=== PATIENT | female | born 1935 | race Caucasian/White ===

== ENCOUNTER 2019-03-29 20:02 | Inpatient (IN) ==
[2019-03-29 21:03] LABS: BASO# 0.03 X1000 (0.0-0.2); BASO% 0.5 % (0.0-0.8); EOS# 0.13 X1000 (0.0-0.7); EOS% 2.3 % (0.0-10.0); HEMATOCRIT 34.7 % (37.0-47.0); HEMOGLOBIN 12.1 g/dL (12.0-16.0); IMM GRAN# 0.04 X1000 (0.0-0.04); IMM GRAN% 0.7 % (0.0-0.5); LYMPH# 2.22 X1000 (1.2-3.4); LYMPH% 38.6 % (20.5-51.1); MCH 29.9 PG (27-31); MCHC 34.9 g/dL (33-37); MCV 85.7 FL (81-99); MONO# 1.04 X1000 (0.11-0.59); MONO% 18.1 % (1.7-9.3); MPV 10.2 FL (7.4-10.4); NEUT# 2.29 X1000 (1.4-6.5); NEUT% 39.8 % (42.2-75.2); PLT 187 X1000 (130-400); RBC 4.05 XMIL (4.2-5.4); RDW 12.5 % (11.5-14.5); WBC 5.75 X1000 (4.8-10.8)
--- NOTE | 2019-03-29 21:16 | Diag Imaging Result Doc PS360 ---
EXAM: CHEST-2 VIEWS INDICATION: chest pain TECHNIQUE: 2 views COMPARISON: 12/02/2017 FINDINGS: There is evidence of prior granulomatous disease, stable. The lungs are grossly clear. There is no discrete pleural fluid collection or pneumothorax. The cardiomediastinal silhouette and central vasculature are grossly unremarkable. IMPRESSION: No evidence of acute pathology by plain radiograph. Electronically signed by Isidro Stiles 03/29/2019 9:14 PM
[2019-03-29 21:18] LABS: ALB/GLOB RATIO 1.8; ALBUMIN 4.8 g/dL (3.5-5.0); CALCIUM 10.5 mg/dL (8.8-10.2); CREATININE 1.9 mg/dL (0.5-0.9); POTASSIUM 4.1 mmol/L (3.5-5.1); TOTAL BILIRUBIN 0.64 mg/dL (0.20-1.00); TOTAL PROTEIN 7.5 g/dL (6.3-8.3)
[2019-03-29 21:23] LABS: URINE SOURCE CLEAN CATCH
[2019-03-29 21:28] LABS: BILIRUBIN URINE NEGATIVE (NEGATIVE); BLOOD URINE NEGATIVE (NEGATIVE); COLOR YELLOW; GLUCOSE URINE NEGATIVE (NEGATIVE); KETONE URINE NEGATIVE (NEGATIVE); LEUKOCYTES URINE MODERATE (NEGATIVE); NITRITE URINE NEGATIVE (NEGATIVE); PROTEIN URINE TRACE mg/dL (NEGATIVE); SP GRAVITY URINE 1.012; TURBIDITY URINE CLEAR (CLEAR); UROBILINOGEN URINE NORMAL (NORMAL)
[2019-03-29 21:29] LABS: UR EPITHELIAL CELLS <10 /HPF (<10); URINE BACTERIA NEGATIVE /HPF; URINE RBC <10 /HPF (<10); URINE WBC <10 /HPF (<10)
--- NOTE | 2019-03-29 21:45 | Diag Imaging Result Doc PS360 ---
EXAM: CT ABDOMEN/PELVIS W/O CONTRAST INDICATION: abd pain, acute kidney injury TECHNIQUE: This exam was performed using automated exposure control, adjustment of mA or kV according to patient size, and/or use of iterative reconstruction technique. COMPARISON: 03/13/2013 FINDINGS: There is mosaic attenuation at the lung bases indicating mild air trapping. The gallbladder, liver, spleen, pancreas, and adrenal glands are unremarkable. During the interval since the previous study and 2012, the left kidney has become significantly atrophic. There is a simple density cyst at the lower pole of the left kidney that is also seen on the previous study. There are no perirenal fluid collections. There are no renal stones and no hydronephrosis. The right kidney is unremarkable. The urinary bladder appears normal. There has been a prior hysterectomy. There has been a prior appendectomy. There is no evidence of bowel wall thickening or bowel obstruction. The remainder of the GI tract is essentially unremarkable. There is lower thoracic and lumbar spondylosis. IMPRESSION: 1.Left renal atrophy that has occurred during the interval since 2012. 2.Other incidental/nonacute findings detailed above. No definite acute pathology by unenhanced CT. Electronically signed by Isidro Stiles 03/29/2019 9:43 PM
[2019-03-29] MEDS ORDERED: NS 500 ML IV ONE (21:50)
[2019-03-29] MEDS ORDERED: ZOFRAN IV ONE (22:01)
[2019-03-29] MEDS ORDERED: MORPHINE IV ONE (22:01)
[2019-03-29] MEDS ORDERED: ZOFRAN IV PRN (23:24)
[2019-03-29] MEDS ORDERED: MORPHINE IV PRN (23:24)
--- NOTE | 2019-03-29 23:57 | HISTORY AND PHYSICAL ---
PRIMARY CARE PHYSICIAN: Dr. Hall. CHIEF COMPLAINT: Abdominal pain and nausea, vomiting x1 week. HISTORY OF PRESENTING ILLNESS: An 83-year-old female with a history of hypertension, hypothyroidism, chronic kidney disease, CHF, and rheumatoid arthritis who presented to the emergency department with 1-week history of having nausea, vomiting. The patient states over the past day or so she was having worsening abdominal pain, mostly in her epigastric/right upper quadrant region. She was evaluated in the emergency department. She was noted to have elevated lipase, and clinically her symptoms were consistent with pancreatitis. Subsequently, she will require admission for further management. At the time of my examination, patient denied any headache, fever, chills, hemoptysis, melena, weight changes, but complained of abdominal pain and nausea, vomiting. PAST MEDICAL HISTORY: Includes hypertension, hypothyroidism hyperlipidemia, chronic kidney disease stage 3, CHF, rheumatoid arthritis. PAST SURGICAL HISTORY: Appendectomy, hysterectomy, cataract surgery. ALLERGIES: Penicillin and adhesives. CURRENT MEDICATIONS: Include Norvasc 5 mg p.o. daily, benazepril 40 mg p.o. daily, Plavix 75 mg p.o. daily, famotidine 40 mg p.o. b.i.d., folic acid 800 mcg p.o. daily, hydrochlorothiazide 12.5 mg p.o. daily, [place] 5 one p.o. q.8 hours, levothyroxine 50 mcg p.o. daily, metoprolol 25 mg p.o. b.i.d., Singular 10 mg p.o. at bedtime, prednisone 10 mg p.o. daily, rosuvastatin 40 mg p.o. at bedtime. SOCIAL HISTORY: She is a former smoker. No history of alcohol or illicit drug use. FAMILY HISTORY: Positive for coronary artery disease in Mother. REVIEW OF SYSTEMS: Fourteen-point review of system as listed in HPI. Other systems negative. PHYSICAL EXAMINATION: GENERAL: Cooperative, friendly female, she is resting more comfortably now. VITAL SIGNS: Temperature 97.9, pulse 60, respirations 16, blood pressure 148/72. HEENT: Atraumatic, normocephalic. Extraocular movements intact. PERRLA. NECK: No masses. CHEST: Clear to auscultation. CARDIOVASCULAR: Regular rate and rhythm. ABDOMEN: Soft. Diffuse tenderness. EXTREMITIES: No edema. NEUROLOGIC: She is awake, alert, oriented x3. GENITOURINARY: No bladder disease. SKIN: Warm. LABORATORIES AND STUDIES: WBC 5.75, hemoglobin 12.1, hematocrit 34.7, platelets 187,000. Sodium 134, potassium 4.1, chloride 98, CO2 is 22, BUN is 30, creatinine is 1.9. Glucose 107. Lipase 282. Chest x-ray, no evidence of any acute pathology. ASSESSMENT: An 83-year-old elderly female with a history of hypertension, hypothyroidism, hyperlipidemia chronic kidney disease, who presented to the emergency department with 1-week history of having nausea, vomiting, and abdominal pain. She was evaluated in the emergency department, it was suspected she had pancreatitis, subsequently, she will require admission for further management. 1. Abdominal pain. 2. Mild pancreatitis. 3. Hypertension. 4. Chronic kidney disease stage 3. 5. Rheumatoid arthritis. PLAN: 1. We will admit patient to medical floor with telemetry. 2. Continue with supportive treatment, keep patient NPO. Give her antiemetics and pain control. 3. Continue with IV fluid hydration. 4. We will monitor blood pressure closely. 5. We will monitor renal function. 6. Put patient on DVT prophylaxis with sequential compression devises. 7. We will continue to follow and reassess, make further recommendations based on the patient's clinical course. cc: MD Chilo White Jr, MD
[2019-03-30 06:46] LABS: BASO# 0.02 X1000 (0.0-0.2); BASO% 0.4 % (0.0-0.8); EOS# 0.11 X1000 (0.0-0.7); EOS% 2.2 % (0.0-10.0); HEMOGLOBIN 10.3 g/dL (12.0-16.0); LYMPH# 1.73 X1000 (1.2-3.4); LYMPH% 34.3 % (20.5-51.1); MCH 29.1 PG (27-31); MCHC 33.2 g/dL (33-37); MCV 87.6 FL (81-99); MONO# 0.68 X1000 (0.11-0.59); MONO% 13.5 % (1.7-9.3); MPV 10.3 FL (7.4-10.4); NEUT% 49.6 % (42.2-75.2); PLT 150 X1000 (130-400); RBC 3.54 XMIL (4.2-5.4); RDW 12.7 % (11.5-14.5); WBC 5.04 X1000 (4.8-10.8)
[2019-03-30 06:54] LABS: CALCIUM 9.2 mg/dL (8.8-10.2); CREATININE 1.4 mg/dL (0.5-0.9); POTASSIUM 3.8 mmol/L (3.5-5.1)
[2019-03-30] MEDS: NS 1,000 ML IV SCH ×3 (09:25→20:51)
[2019-03-30] MEDS ORDERED: SODIUM CHLORIDE 0.9% INJ SCH (12:00)
--- NOTE | 2019-03-30 12:50 | PROGRESS NOTE ---
DATE: 03/30/2019 SUBJECTIVE: An 83-year-old white female patient of Dr. Hall came in last night with right upper quadrant pain with meals since Monday. The patient was seen by Dr. Hall a month ago. Currently is pain-free. Events noted since yesterday. Son was at bedside. REVIEW OF SYSTEMS: Currently pain-free. PAST MEDICAL HISTORY: Reviewed. PAST SURGICAL HISTORY: Reviewed. MEDICINES: Reviewed. ALLERGIES: Penicillin, adhesive tape. OBJECTIVE: Vital Signs: On exam, temperature is 97 degrees, pulse is 53, blood pressure is 120/46, weighs 151 pounds. HEENT: Exam within normal limits. Neck: Supple. Chest: Clear. Heart: Sounds are regular. Abdomen: Belly is soft. No Peraza's sign. No signs of peritonitis. Extremities: No peripheral edema. Osteoarthritic changes noted in the joint. INVESTIGATIONS: CBC: White cell count 5, hematocrit 31, platelet count 150. Sodium 140, potassium 3.8, BUN 24, creatinine 1.4. Amylase, AST, ALT, proBNP, cardiac enzymes were negative. Lipase is high. Urinalysis positive for moderate leukocytes. Chest x-ray stable. CT scan of the abdomen and pelvis with left renal atrophy and status post appendectomy and hysterectomy. No gallstones. ASSESSMENT AND PLAN: 1. An 83-year-old white female admitted to the hospital with right upper quadrant pain, suspicious for gallbladder disease. Elevated lipase and patient is on nothing by mouth. Continue to follow up on ultrasound of the abdomen. If it is negative, rule out gallbladder function with HIDA scan. 2. Intravenous fluids. 3. Intravenous Zofran. 4. Chronic kidney disease. Stable. Continue intravenous fluids. 5. Deep vein thrombosis and gastrointestinal prophylaxis with Protonix and Lovenox and slowly reconcile home medications. Discussed the plan of care with family at bedside. LEVEL OF DOCUMENTATION: 35 minutes. cc: MD Chilo Del Rio Jr, MD
--- NOTE | 2019-03-30 12:52 | Diag Imaging Result Doc PS360 ---
EXAM: US ABDOMEN-COMPLETE INDICATION: abdominal pain COMPARISON: Renal ultrasound dated 10/19/2015 FINDINGS: The gallbladder appears normal with no stones, wall thickening, or pericholecystic fluid. The common bile duct is normal in diameter. Sonographic Peraza's sign was reported to be negative. The liver is grossly unremarkable. Portal venous flow is hepatopetal. The pancreas is largely obscured. The visualized portion is unremarkable. The aorta and IVC are partially obscured. The visualized portions are unremarkable. There are calcified granulomata in the spleen. The spleen is unremarkable, otherwise. There is a 2.8 cm simple appearing cyst at the lower pole of the left kidney. The kidneys are unremarkable, otherwise. IMPRESSION: Essentially unremarkable abdominal ultrasound. Electronically signed by Isidro Stiles 03/30/2019 12:50 PM
[2019-03-30] MEDS: NEXIUM IV SCH (13:39)
--- NOTE | 2019-03-30 14:12 | GENERAL SURGERY CONSULTATION ---
DATE: 03/30/2019 REQUESTING PHYSICIAN: Dr. Miranda. REASON FOR CONSULTATION: Biliary pancreatitis. HISTORY OF PRESENT ILLNESS: An 83-year-old female with history of hypertension, hypothyroidism, chronic kidney disease, congestive heart failure, rheumatoid arthritis, who presented to the emergency department with a 1-week history of nausea and vomiting. She also reports some right upper quadrant epigastric pain. She was evaluated in the emergency department and found to have pancreatitis and she has been admitted for further resuscitation. She is otherwise doing okay, feeling a little bit better this morning. PAST MEDICAL HISTORY: Includes hypertension, hypothyroidism, hyperlipidemia, chronic kidney disease stage 3, congestive heart failure, rheumatoid arthritis. PAST SURGICAL HISTORY: Includes appendectomy, hysterectomy, cataract surgery. ALLERGIES: Penicillin and adhesive. CURRENT HOME MEDICATIONS: Of note, she is on Plavix. SOCIAL HISTORY: Former smoker. Does not report alcohol or illicit drugs. FAMILY HISTORY: Positive for coronary artery disease. REVIEW OF SYSTEMS: Fourteen systems reviewed, negative except for those specified in the HPI. PHYSICAL EXAMINATION: Vital signs: The patient is currently afebrile. Her vital signs are stable. General: No acute distress. Alert, interactive, female. Looks stated age. HEENT: Normocephalic, atraumatic. Pupils equal, round, reactive to light. Mucous membranes moist. Oropharynx benign. Neck: Supple. Trachea midline. No scleral icterus. Cardiovascular: Regular rate and rhythm. Lungs: Grossly clear. Abdomen: Some tenderness to the right upper quadrant. No peritoneal signs. Extremities: Moves all extremities. Neurologic: Grossly intact. Skin: No signs of jaundice. Vascular: All extremities perfused. LABORATORY DATA: Reviewed. IMAGING: Reviewed. Ultrasound is pending. CT scan reviewed. ASSESSMENT AND PLAN: An 83-year-old female with pancreatitis. Pancreatitis. At this time, it could be biliary in origin. Discussed with her the natural course of pancreatitis. Discussed with her the possibility of needing a cholecystectomy. Discussed with her overall expectations. We will continue to follow with her as she is in the hospital. I appreciate the consult. cc: MD Chilo Bradshaw Jr, MD
[2019-03-31 06:12] LABS: BASO# 0.02 X1000 (0.0-0.2); BASO% 0.4 % (0.0-0.8); EOS# 0.11 X1000 (0.0-0.7); EOS% 2.1 % (0.0-10.0); HEMATOCRIT 33.1 % (37.0-47.0); HEMOGLOBIN 10.7 g/dL (12.0-16.0); MCH 29.2 PG (27-31); MCHC 32.3 g/dL (33-37); MCV 90.2 FL (81-99); MONO# 0.56 X1000 (0.11-0.59); MONO% 10.4 % (1.7-9.3); MPV 10.2 FL (7.4-10.4); NEUT# 3.17 X1000 (1.4-6.5); NEUT% 59.1 % (42.2-75.2); PLT 156 X1000 (130-400); RBC 3.67 XMIL (4.2-5.4); RDW 13.1 % (11.5-14.5); WBC 5.36 X1000 (4.8-10.8)
--- NOTE | 2019-03-31 07:04 | GENERAL SURGERY PROGRESS NOTE ---
DATE: 03/31/2019 SUBJECTIVE: The patient seems to be doing okay. She had a little bit of pain through the course of the night, but otherwise says she is feeling better. OBJECTIVE: Vital Signs: The patient is currently afebrile. Her vital signs are stable. HEENT: Normocephalic, atraumatic. Pupils equal, round, reactive to light. Mucous membranes moist. Oropharynx benign. Neck: Supple. Trachea midline. Cardiovascular: Regular rate and rhythm. Lungs: Grossly clear. Abdomen: Soft. Some discomfort in the epigastrium and right upper quadrant, but no peritoneal signs. Extremities: Moves all extremities. Neurologic: Grossly intact. Skin: No signs of jaundice. Vascular: All extremities are perfused. LABORATORY DATA: None this morning as of yet. ASSESSMENT AND PLAN: An 83-year-old female with likely biliary pancreatitis. Pancreatitis. At this time, she seems to be making improvement, although she is not quite fully recovered. We could potentially be looking at a cholecystectomy here in the next day or two, but would like to see some slight improvement before we consider surgical intervention, again maybe tomorrow. cc: MD Chilo Bradshaw Jr, MD
[2019-03-31 07:14] LABS: ALB/GLOB RATIO 1.5; ALBUMIN 3.5 g/dL (3.5-5.0); CREATININE 1.3 mg/dL (0.5-0.9); POTASSIUM 3.6 mmol/L (3.5-5.1); TOTAL BILIRUBIN 0.66 mg/dL (0.20-1.00); TOTAL PROTEIN 5.9 g/dL (6.3-8.3)
--- NOTE | 2019-03-31 12:01 | PROGRESS NOTE ---
DATE: 03/31/2019 SUBJECTIVE: The patient complains of right upper quadrant pain. Sometimes acid reflux symptoms, difficulty in swallowing. Not taking any NSAIDs, only Tylenol for arthritic pain. Ultrasound is negative. Appreciate Dr. Pelletier's consult. OBJECTIVE: Vital signs: Temperature is 97.8 degrees, pulse is 72, blood pressure is 110/88, weight 163 pounds. HEENT: Within normal limits. Neck: Supple. Chest: Clear. Heart: Sounds are regular. Abdomen: Belly is soft, slightly tender in the right upper quadrant area. No signs of peritonitis. DIAGNOSTIC DATA: Investigation today with CBC showing white cell count 5.3, hematocrit 33, platelets 156,000. Sodium 135, potassium 3.6, chloride 106, BUN is 17, creatinine 1.3, glucose 65. LFTs and amylase came back normal. ASSESSMENT AND PLAN: 1. Right upper quadrant pain with eating. Etiology to be determined. Ultrasound is negative. CT of the abdomen and pelvis is negative. Check the HIDA scan. 2. Chronic kidney disease is improving with IV fluids. 3. Elevated lipase but normal amylase. 4. We will hold the home medications except restart on vitamin D, folic acid, Synthroid, and continue on IV fluids, IV Nexium, and based on the HIDA scan, further recommendations will be followed. Also consider EGD since she has some symptoms of acid reflux disease as well as dysphagic symptoms. I spoke to Dr. Pelletier as well as the family and will hold the home medications for the time being. LEVEL OF DOCUMENTATION: 25 minutes. cc: MD Chilo Del Rio Jr, MD
[2019-03-31] MEDS: NEXIUM IV SCH (14:25)
--- NOTE | 2019-03-31 14:37 | Diag Imaging Result Doc PS360 ---
EXAM: HIDA SCAN W/ EJECTION FRACTION INDICATION: abdominal bloating TECHNIQUE: 5.1 mCi of technetium 99 Choletec was administered intravenously and images were obtained in usual fashion post administration. COMPARISON: None. FINDINGS: There is normal immediate hepatocellular uptake after administration of the radiotracer. Activity is seen in the gallbladder beginning at about 60 minutes post administration. No small bowel activity is identified after 45 minutes. 8 ounces of liquid fatty meal was then administered orally. Prompt small bowel activity is identified after administration. The calculated gallbladder ejection fraction is 21%. IMPRESSION: Somewhat depressed gallbladder ejection fraction suggesting possible hypokinesis. Electronically signed by Isidro Stiles 03/31/2019 2:35 PM
[2019-03-31] MEDS: NS 1,000 ML IV SCH (23:36)
[2019-04-01] MEDS: SYNTHROID PO SCH (06:17)
[2019-04-01 06:43] LABS: BASO# 0.02 X1000 (0.0-0.2); BASO% 0.4 % (0.0-0.8); EOS# 0.12 X1000 (0.0-0.7); EOS% 2.4 % (0.0-10.0); HEMATOCRIT 36.1 % (37.0-47.0); HEMOGLOBIN 11.9 g/dL (12.0-16.0); LYMPH# 1.69 X1000 (1.2-3.4); LYMPH% 34.4 % (20.5-51.1); MCH 29.4 PG (27-31); MCV 89.1 FL (81-99); MONO# 0.49 X1000 (0.11-0.59); MPV 10.2 FL (7.4-10.4); NEUT# 2.59 X1000 (1.4-6.5); NEUT% 52.8 % (42.2-75.2); PLT 197 X1000 (130-400); RBC 4.05 XMIL (4.2-5.4); RDW 13.2 % (11.5-14.5); WBC 4.91 X1000 (4.8-10.8)
--- NOTE | 2019-04-01 07:03 | GENERAL SURGERY PROGRESS NOTE ---
DATE: 04/01/2019 SUBJECTIVE: Patient feeling better. OBJECTIVE: Vital Signs: The patient is currently afebrile. Her vital signs are stable. General: No acute distress. HEENT: Normocephalic, atraumatic. Pupils equal, round, reactive to light. Mucous membranes moist. Oropharynx benign. Neck: Supple. Trachea midline. Cardiovascular: Regular rate and rhythm. Lungs: Grossly clear. Abdomen: Soft, nontender. Extremities: Moves all extremities. Neurologic: Grossly intact. Skin: No signs of jaundice. Vascular: All extremities perfused. LABORATORY DATA: None this morning as of yet. ASSESSMENT AND PLAN: An 83-year-old female with biliary pancreatitis. Biliary pancreatitis. At this time, will plan on surgical intervention today. Discussed with her, the risks, benefits, and alternatives. Risks, including but not limited to, bleeding, infection, risk of anesthesia, risk of common bile duct injury and bile leak, risk of injuring in other organs discussed. She voiced understanding and wishes to proceed. Will schedule her for today. If she is still having symptomatology, especially dysphagia, may consider in the postoperative period doing an esophagogastroduodenoscopy. cc: MD Chilo Bradshaw Jr, MD
[2019-04-01 07:11] LABS: ALB/GLOB RATIO 1.4; ALBUMIN 4.1 g/dL (3.5-5.0); CALCIUM 9.4 mg/dL (8.8-10.2); CREATININE 1.2 mg/dL (0.5-0.9); POTASSIUM 3.5 mmol/L (3.5-5.1); TOTAL BILIRUBIN 0.73 mg/dL (0.20-1.00)
--- NOTE | 2019-04-01 07:27 | PROGRESS NOTE ---
DATE: 04/01/2019 SUBJECTIVE: An 83-year-old white female patient, admitted with abdominal pain, nausea, vomiting. Patient's admission history and physical noted. The patient is feeling some better. The patient denied any typical chest pain or palpitations. She does have history of mild congestive heart failure, but no orthopnea or PND. No diarrhea, blood, or mucus in the stool. No dysuria or hematuria. PAST MEDICAL HISTORY: Hypothyroidism, hyperlipidemia, chronic kidney disease, hypertension, congestive heart failure, history of rheumatoid arthritis. PAST SURGICAL HISTORY: The patient had appendectomy, hysterectomy, and cataract surgery. Her admission history and physical noted. OBJECTIVE: Vital Signs: Blood pressure 129/54, pulse 62, respirations 18, temperature 98.3 degrees. Skin: Senile turgor. Neck: Supple. No JVD. Lungs: Bibasilar crepitations. Heart: S1 and S2 heard. Abdomen: Soft. No distention. Bowel sounds present. Mild epigastric tenderness. No guarding or rigidity. Extremities: No cyanosis, clubbing. No acute DVT. GASOLINE ENGINE ASSEMBLER: Alert, awake, able to move all 4 limbs. ASSESSMENT: Patient admitted with abdominal pain, nausea, vomiting. Her workup did reveal mild hypokinesia of the gallbladder, so possibility of abnormal gallbladder function or chronic cholecystitis cannot be ruled out. My main concern is gastritis and reflux disease and possible gastric pathology. The patient will definitely need gastrointestinal evaluation. She does have a history of hypertension, doing well without medication, chronic kidney disease, congestive heart failure (well-compensated), history of rheumatoid arthritis. LABORATORY DATA: Today, hemoglobin 11.9, hematocrit 36.1, WBC count 4.91, platelets 197,000. Electrolytes checked yesterday, noted. PLAN: The patient is scheduled to have cholecystectomy today. Will check appropriate labs tomorrow. cc: MD Chilo Mesa Jr, MD
[2019-04-01] MEDS ORDERED: MEFOXIN 2 GM/NS 2 GM/50 ML IVPB IV ONE (09:00)
[2019-04-01] MEDS ORDERED: SENSORCAINE 0.25%/EPI 1:200,000 ONE (10:40)
[2019-04-01] MEDS ORDERED: LR 1,000 ML ONE (10:40)
[2019-04-01] MEDS: VITAMIN D PO SCH (10:53)
[2019-04-01] MEDS: FOLIC ACID PO SCH (10:53)
--- NOTE | 2019-04-01 10:56 | EKG Report ---
Test Performed on : 04/01/2019 09:18:53 AM Test Reason : EKG for surgery Blood Pressure : / mmHG Vent. Rate : 064 BPM Atrial Rate : 064 BPM P-R Int : 132 ms QRS Dur : 072 ms QT Int : 422 ms P-R-T Axes : 047 037 035 degrees QTc Int : 435 ms Normal sinus rhythm. Low voltage QRS Cannot rule out Anterior infarct (cited on or before 02-DEC-2017) Abnormal ECG When compared with ECG of 02-DEC-2017 15:28, Sinus rhythm. has replaced Atrial flutter. Nonspecific T wave abnormality has replaced inverted T waves in Inferior leads Confirmed by Soledad ARGUETA, Beto Staples ([id number]) on 04/03/2019 8:12:34 AM
[2019-04-01] MEDS ORDERED: QUELICIN (DOSE) ONE (11:08)
[2019-04-01] MEDS ORDERED: DIPRIVAN 1% ONE (11:08)
[2019-04-01] MEDS ORDERED: XYLOCAINE-MPF 2% ONE (11:08)
[2019-04-01] MEDS ORDERED: FENTANYL ONE (11:32)
[2019-04-01] MEDS: SODIUM CHLORIDE 0.9% ONE ×2 (11:54→11:56)
[2019-04-01] MEDS ORDERED: ZEMURON ONE (11:55)
[2019-04-01] MEDS ORDERED: EPHEDRINE ONE (12:00)
[2019-04-01] MEDS ORDERED: ROBINUL ONE (12:05)
[2019-04-01] MEDS ORDERED: NEOSTIGMINE ONE (12:05)
[2019-04-01] MEDS ORDERED: ZOFRAN ONE (12:16)
[2019-04-01] MEDS: DILAUDID ONE ×2 (12:33→12:38)
--- NOTE | 2019-04-01 12:48 | OPERATIVE NOTE ---
PROCEDURE DATE: 04/01/2019 PREOPERATIVE DIAGNOSIS: Biliary pancreatitis. POSTOPERATIVE DIAGNOSIS: Biliary pancreatitis. PROCEDURE: Laparoscopic cholecystectomy. SURGEON: Star Pelletier MD. GROUND SUPPORT EQUIPMENT MECHANIC: None. ANESTHESIA: General endotracheal. OPERATIVE FINDINGS: Gallbladder had some signs of chronic cholecystitis. COMPLICATIONS: None at the time of dictation. ESTIMATED BLOOD LOSS: 10 mL. SPECIMENS REMOVED: Gallbladder. BRIEF HISTORY: An 83-year-old female presenting with biliary pancreatitis, it was felt she would benefit from a cholecystectomy. The risks, benefits, and alternatives were discussed with the patient and documented in the chart. All questions were answered. DESCRIPTION OF PROCEDURE: After informed consent was obtained, the patient was brought to the operative theater, transferred to the operative table, and placed in the supine position. General endotracheal anesthesia was then performed without complication. A formal time-out was then performed confirming correct patient, date, and procedure. All were in agreement. At that time, attention was given to the abdomen. An infraumbilical incision was made through which using Optiview technique. We inserted an 11 mm trocar and connected to insufflation. Pneumoperitoneum was achieved. Under direct visualization, we placed 3 more trocars, all were in 5 mm, one in the subxiphoid and 2 in the right upper quadrant. Using these, the gallbladder was identified, had some adhesions that we took down but we were able to retract it cephalad. We dissected out the cystic duct and cystic artery to achieve the critical view of safety. We doubly clipped and ligated the cystic duct and cystic artery. There was a posterior artery that we also doubly clipped and ligated. We then dissected the gallbladder off the gallbladder fossa. There was some drainage of bile. We were able to get the gallbladder off. We then placed into an endobag and brought it out through the infraumbilical incision. We then reexamined the gallbladder fossa. There was no active drainage of bile. No bleeding. We irrigated out the abdomen until suction fluid was clear. The infraumbilical incision and fascial defects were offset so we did not have to close it. We then removed all trocars, disconnected insufflation. Pneumoperitoneum was released. All skin incisions closed with 4-0 Monocryl. The patient tolerated the procedure well, and was transferred to recovery room. cc: MD Chilo Bradshaw Jr, MD
[2019-04-01] MEDS ORDERED: NORCO-10 ONE (12:49)
[2019-04-01] MEDS ORDERED: NORCO-10 PO PRN (12:53)
[2019-04-01 14:01] LABS: CALCIUM 9.1 mg/dL (8.8-10.2); CREATININE 1.1 mg/dL (0.5-0.9); POTASSIUM 3.8 mmol/L (3.5-5.1)
[2019-04-01] MEDS: NEXIUM IV SCH (14:34)
[2019-04-01] MEDS: NS 1,000 ML IV SCH ×2 (14:34→18:21)
[2019-04-02] MEDS: NS 1,000 ML IV SCH ×2 (04:55→09:13)
--- NOTE | 2019-04-02 05:54 | GENERAL SURGERY PROGRESS NOTE ---
DATE: 04/02/2019 SUBJECTIVE: Patient doing well. She says her pain is okay at this point after her laparoscopic cholecystectomy. OBJECTIVE: Vital Signs: Patient is currently afebrile. Her vital signs stable. General: No acute distress. Cardiovascular: Regular rate and rhythm. Lungs: Grossly clear. Abdomen: Soft, appropriately tender. ASSESSMENT AND PLAN: An 83-year-old female, currently postoperative day #1 from laparoscopic cholecystectomy for biliary pancreatitis. Postoperative state. At this time, surgically, she is doing well. From my point of view, she can be discharged home. We have put prescriptions in her chart. We will defer discharge to her primary care physician. cc: MD Chilo Bradshaw Jr, MD
[2019-04-02 06:36] LABS: BASO# 0.01 X1000 (0.0-0.2); BASO% 0.2 % (0.0-0.8); EOS# 0.15 X1000 (0.0-0.7); EOS% 2.8 % (0.0-10.0); HEMATOCRIT 29.7 % (37.0-47.0); HEMOGLOBIN 9.7 g/dL (12.0-16.0); LYMPH% 18.5 % (20.5-51.1); MCH 29.8 PG (27-31); MCHC 32.7 g/dL (33-37); MCV 91.1 FL (81-99); MONO# 0.69 X1000 (0.11-0.59); MONO% 12.7 % (1.7-9.3); MPV 9.9 FL (7.4-10.4); NEUT# 3.57 X1000 (1.4-6.5); NEUT% 65.8 % (42.2-75.2); PLT 151 X1000 (130-400); RBC 3.26 XMIL (4.2-5.4); RDW 13.2 % (11.5-14.5); WBC 5.42 X1000 (4.8-10.8)
[2019-04-02] MEDS: SYNTHROID PO SCH (06:42)
[2019-04-02 06:47] LABS: ALB/GLOB RATIO 1.3; ALBUMIN 3.1 g/dL (3.5-5.0); CALCIUM 8.5 mg/dL (8.8-10.2); MAGNESIUM 1.6 mg/dL (1.5-2.7); POTASSIUM 4.3 mmol/L (3.5-5.1); TOTAL BILIRUBIN 0.67 mg/dL (0.20-1.00); TOTAL PROTEIN 5.5 g/dL (6.3-8.3)
[2019-04-02 07:43] VITALS: BP 139/53
[2019-04-02] MEDS ORDERED: PERIDEX MT SCH (09:00)
[2019-04-02] MEDS: FOLIC ACID PO SCH (09:12)
[2019-04-02] MEDS: VITAMIN D PO SCH (09:13)
--- NOTE | 2019-04-02 09:30 | DISCHARGE SUMMARY ---
ADMISSION DATE: 03/29/2019 DISCHARGE DATE: 04/02/2019 CONSULTATION: Dr. Pelletier, surgeon. PROCEDURE: Cholecystectomy done laparoscopically yesterday. DISCHARGE MEDICATIONS: Will be her regular home medications plus she has some [place] 10 to go home with her, 30 of those, 1 every 6 to 8 hours as needed for pain prescribed by Dr. Pelletier. HISTORY OF PRESENT ILLNESS: The patient is an 83-year-old white female with hypertension, hypothyroidism, chronic kidney disease, CHF, rheumatoid arthritis, who came in to the emergency room with a 1 week history of nausea and vomiting. She had some discomfort in the right upper quadrant and in the epigastric area. Initially her serum lipase was elevated. Subsequent amylases were normal. Ultrasound of the abdomen showed no gallstones. HIDA scan with ejection fraction showed an ejection fraction of 24%, so I felt like she had dysfunctional gallbladder. CT scan of the abdomen was actually normal, it did not show pancreatitis, so clinically I think she had a very mild pancreatitis. The patient underwent a cholecystectomy, is doing well. Getting up and moving around well today. Will discharge home. She has an appointment later this month in my office and I will just see her back at that time. PHYSICAL EXAMINATION: Vital signs show temperature 97.5 degrees Fahrenheit, blood pressure 139/53, respirations 18, pulse 67. HEENT: She is normocephalic. EOMs intact. PERRLA. Throat clear. Lungs: Clear to auscultation and percussion without rhonchi, rales, or wheezes. Heart: Regular rate and rhythm without murmurs, gallops, or friction rubs. Abdomen: Soft with some active bowel sounds. She has mild tenderness from her laparoscopic cholecystectomy. Neurological: Intact grossly. LABORATORY: Shows a white count of 5420, hemoglobin is down to 9.7, hematocrit 29.7. Her AST was slightly up at 123, ALT slightly up at 73, alkaline phosphatase 62, this is all probably from just being postoperative cholecystectomy. PLAN: Dr. Pelletier has already seen her early this morning and said that from a surgical point of view that she could go home. Will discharge her on her home medications plus the [place] as above. cc: Chilo Hall Jr, MD
== END 2019-04-02 10:43 | disposition home or self-care (01) | DRG 418 ==
LOC: ED 20:02 → SUATTDRO 22:43 → 4N 22:43
PROVIDERS: ADMIT Emergency Medicine; ATTEND Emergency Medicine